=== PATIENT | male | born 1980 | race Caucasian/White ===

== ENCOUNTER 2016-09-28 09:38 | Emergency (ER) | payer SELFPAY ==
[~2016-09-28] VITALS: Ht 180.3 cm; Wt 77.0 kg
[2016-09-28 09:41] VITALS: BP 169/92; PULSE 70; RESP 24; TEMP 97.7; O2SAT 98
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
[2016-09-28] MEDS ORDERED: CYCLOBENZAPRINE HCL 10 MG TAB PO ONE (10:30)
[2016-09-28] MEDS ORDERED: IBUPROFEN 600 MG TAB PO ONE (10:30)
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
[2016-09-28] MEDS ORDERED: MOTR200T4 PO (11:44)
[2016-09-28] MEDS ORDERED: CYCL1TAB29 PO (11:44)
== END 2016-09-28 12:25 | disposition home or self-care (01) ==
LOC: NEPA 09:38
DX: M54.12 Radiculopathy, cervical region (principal)
CPT/HCPCS: 72050; 99283